=== PATIENT | male | born 1995 | race Caucasian/White ===

== ENCOUNTER 2023-12-12 01:37 | Emergency (ER) | payer OTHER ==
[~2023-12-12] VITALS: Ht 175.3 cm; Wt 65.8 kg
[2023-12-12 02:27] VITALS: TEMP 98.6
[2023-12-12] MEDS ORDERED: ONDANSETRON HCL/PF 4 MG/2 ML VIAL ONE (02:43)
[2023-12-12] MEDS: IV NS 0.9% 1,000 ML BAG IV ONE (02:52)
[2023-12-12] MEDS: ONDANSETRON HCL/PF 4 MG/2 ML VIAL IVP ONE (02:52)
[2023-12-12 02:56] LABS: BASOPHILS % (AUTO) 0.1 % (0.0-2.0); EOSINOPHILS % (AUTO) 0.3 % (0.0-6.0); HEMATOCRIT 50 % (39-51); HEMOGLOBIN 17.2 g/dL (13.5-17.5); LYMPHOCYTES # (AUTO) 1.1 K/uL (0.8-4.8); LYMPHOCYTES % (AUTO) 7.7 % (20.0-44.0); MEAN CORPUSCULAR HEMOGLOBIN 31 PG (26.0-33.0); MEAN CORPUSCULAR HGB CONC 34 g/dl (31.0-36.0); MEAN CORPUSCULAR VOLUME 91 fL (80-96); MONOCYTES # (AUTO) 0.7 K/uL (0.1-1.30); NEUTROPHILS # (AUTO) 11.9 K/uL (1.8-8.9); NEUTROPHILS % (AUTO) 86.9 % (43.0-81.0); PLATELET COUNT (AUTO) 201 K/uL (150-450); RED CELL DISTRIBUTION WIDTH 12.9 % (11.5-15.0); WHITE BLOOD COUNT (AUTO) 13.7 K/uL (4.3-11.0)
[2023-12-12 03:24] LABS: ALBUMIN 4.5 g/dL (3.4-5.0); BILIRUBIN,DIRECT 0.4 mg/dL (0.0-0.2); CALCIUM, SERUM 9.5 mg/dL (8.5-10.1); CREATININE 1.1 mg/dL (0.6-1.3); POTASSIUM 4.7 mmol/L (3.5-5.1); TOTAL PROTEIN, SERUM 8.1 g/dL (6.4-8.2)
[2023-12-12] MEDS ORDERED: ONDA4TAB11 PO (04:25)
[2023-12-12] MEDS ORDERED: DICY20TA11 PO (04:27)
[2023-12-12] MEDS ORDERED: DICYCLOMINE HCL 10 MG/5 ML UDC PO ONE (04:30)
[2023-12-12] MEDS ORDERED: MAG HYDROX/AL HYDROX/SIMETH 30 ML UDC PO ONE (04:30)
[2023-12-12] MEDS ORDERED: LIDOCAINE VISCOUS 2% UD 15 ML UDC MM ONE (04:30)
[2023-12-12] MEDS ORDERED: MAG HYDROX/AL HYDROX/SIMETH 30 ML UDC ONE (04:31)
[2023-12-12] MEDS ORDERED: DICYCLOMINE HCL 10 MG/5 ML UDC ONE (04:31)
[2023-12-12] MEDS ORDERED: LIDOCAINE VISCOUS 2% UD 15 ML UDC ONE (04:31)
[2023-12-12 04:44] VITALS: BP 118/72; O2SAT 98
== END 2023-12-12 04:45 | disposition home or self-care (01) ==
LOC: ER 01:45
DX: R10.13 Epigastric pain (principal); R11.2 Nausea with vomiting, unspecified; R19.7 Diarrhea, unspecified; Z60.2 Problems related to living alone
CPT/HCPCS: 99285; 96374; 76705; 96361; 85025; 80048; 83690; 80076; 36415; J2405; J7030